=== PATIENT | male | born 1985 | race Caucasian/White ===

== ENCOUNTER → 2020-06-20 | Outpatient (CLI) | payer BC, OTHER ==
--- NOTE | 2020-06-20 07:32 | US ---
EXAMINATION TYPE: US abdomen complete DATE OF EXAM: 06/20/2020 COMPARISON: NONE CLINICAL HISTORY: R10.11 RUQ PAIN. Abdominal pain EXAM MEASUREMENTS: Liver Length: 12.1 cm Gallbladder Wall: 0.2 cm CBD: 0.2 cm Spleen: 9.1 cm Right Kidney: 11..1 x 4.9 x 4.1 cm Left Kidney: 11.0 x 5.4 x 5.0 cm Pancreas: Obscured by bowel gas, visualized portions wnl Liver: wnl Gallbladder: wnl Evidence for sonographic Causey's sign: No CBD: wnl as visualized Spleen: wnl Right Kidney: No hydronephrosis or masses seen Left Kidney: No hydronephrosis or masses seen Upper IVC: wnl Abd Aorta: wnl The liver is homogenous. The intrahepatic portion of the IVC and proximal abdominal aorta are within normal limits. There is no evidence of cholelithiasis. Common bile duct is unremarkable. The visu alized portions of the pancreas are homogenous. The spleen is unremarkable. Kidneys are symmetric a nd free of hydronephrosis. No renal lesions are seen. IMPRESSION: No distinct abnormality seen.
== END | disposition home or self-care (01) ==
LOC: RADUSWWP 07:00
PROVIDERS: ATTEND Internal Medicine
DX: R10.11 Right upper quadrant pain (principal)
CPT/HCPCS: 76700

== ENCOUNTER → 2020-12-03 | Outpatient (CLI) | payer BC ==
--- NOTE | 2020-12-03 17:16 | US ---
EXAMINATION TYPE: US scrotum with doppler. Grayscale and color Doppler Duplex imaging performed of kem lam scrotum. DATE OF EXAM: 12/03/2020 COMPARISON: NONE CLINICAL HISTORY: N50.819 testicular pain. Pt states right testicle/groin pain EXAM MEASUREMENTS: TESTICLES: Right Testicle: 3.5 x 2.0 x 3.6 cm Left Testicle: 3.7 x 2.0 x 3.8 cm EPIDIDYMIS HEAD: Right Epididymis: 1.0 cm Left Epididymis: 1.5 cm Doppler performed to assess for testicular vascularity; good bilateral color flow and waveforms are s een. There is no evidence of testicular torsion. Presence of hydroceles: No Presence of varicoceles: No No abnormality visualized to account for pt's symptoms/ please note that right groin images with va lsalva were obtained in area of pt's complaint Results called to Denae at 's office at time of exam IMPRESSION: No evidence of testicular torsion or mass. No free fluid.
== END | disposition home or self-care (01) ==
LOC: RADUSWWP 16:28
PROVIDERS: ATTEND Family Medicine
DX: N50.819 Testicular pain, unspecified (principal)
CPT/HCPCS: 76870; 93975